=== PATIENT | female | born 1955 | race African-American/Black ===

== ENCOUNTER 2020-01-22 07:02 | Outpatient (REF) | payer OTHER, MEDICAID, SELFPAY ==
[2020-01-22 07:53] LABS: Hematocrit 25.4 % (37-47); Hemoglobin 8.3 g/dl (12.0-16.0); Mean Corpuscular HGB Conc 32.7 g/dl (31.0-35.0); Mean Corpuscular Hemoglobin 31.4 pg (27.0-33.0); Mean Corpuscular Volume 96.2 fL (80-98); Mean Platelet Volume 10.4 fL (9.4-12.3); NRBC Pct Auto 0.2 /100WBC (0.0-0.2); Platelet Count 406 X10*3/uL (160-400); Red Blood Count 2.64 X10*6/uL (4.20-5.50); Red Cell Distribution Width 13.4 % (11.0-16.0); White Blood Count 11.4 X10*3/uL (4.8-10.8)
[2020-01-22 07:56] LABS: INTERNATIONAL NORM RATIO 1.3 (0.9-1.1); Prothrombin Time 14.9 SEC (10.8-13.0)
[2020-01-22 09:03] LABS: Alanine Aminotransferase 13 U/L (0-31); Alkaline Phosphatase 108 U/L (39-117); Anion Gap 16 (12-20); Aspartate Amino Transferase 21 U/L (5-31); Bilirubin Total 0.4 mg/dL (0.0-1.0); Blood Urea Nitrogen 29 mg/dL (9-16); Calcium 7.6 mg/dL (8.4-10.2); Carbon Dioxide 27 mmol/L (22-29); Chloride 96 mmol/L (96-108); Estimated Glomerular Filt Rate 8; Glucose Random 89 mg/dL (60-115); Potassium 4.1 mmol/l (3.3-5.1); Sodium 135 mmol/L (135-145); Total Protein 7.6 g/dL (6.5-8.0)
== END 2020-01-22 07:03 | disposition home or self-care (01) ==
LOC: HO.MMNH1L 07:02
PROVIDERS: Visit Provider Family Medicine
DX: E11.22 Type 2 diabetes mellitus with diabetic chronic kidney disease (principal); N18.6 End stage renal disease
CPT/HCPCS: 36415; 80053; 85027; 85610

== ENCOUNTER 2020-01-27 13:00 | Outpatient (REF) | payer MEDICARE, MEDICAID, SELFPAY | END 2020-01-27 13:01 | LOC: HO.LNP 13:00 | PROVIDERS: Visit Provider Family Medicine | DX: Z20.828 Contact with and (suspected) exposure to other viral communicable diseases (principal) | CPT/HCPCS: U0003 ==

== ENCOUNTER 2020-02-01 14:53 | Outpatient (REF) | payer MEDICARE, MEDICAID, SELFPAY | END 2020-02-01 14:54 | disposition home or self-care (01) | LOC: HO.HSH1N 14:53 | PROVIDERS: Visit Provider Family Medicine | DX: Z13.89 Encounter for screening for other disorder (principal) ==

== ENCOUNTER 2020-02-01 15:27 | Outpatient (REF) | payer SELFPAY ==
[2020-02-01 15:42] LABS: INTERNATIONAL NORM RATIO 1.4 (0.9-1.1); Prothrombin Time 16.5 SEC (10.8-13.0)
== END 2020-02-01 15:28 | disposition home or self-care (01) ==
LOC: HO.MMNH1L 15:27
PROVIDERS: Visit Provider Family Medicine
DX: Z99.2 Dependence on renal dialysis (principal)
CPT/HCPCS: 36415; 85610

== ENCOUNTER 2020-02-17 | Outpatient (REF) | payer MEDICARE, MEDICAID, SELFPAY ==
[2020-02-17 07:00] LABS: Hematocrit 27.3 % (37-47); Hemoglobin 8.9 g/dl (12.0-16.0); Mean Corpuscular HGB Conc 32.6 g/dl (31.0-35.0); Mean Corpuscular Hemoglobin 31.1 pg (27.0-33.0); Mean Corpuscular Volume 95.5 fL (80-98); Platelet Count 172 X10*3/uL (160-400); Red Blood Count 2.86 X10*6/uL (4.20-5.50); Red Cell Distribution Width 13.6 % (11.0-16.0); White Blood Count 3.9 X10*3/uL (4.8-10.8)
[2020-02-17 07:17] LABS: INTERNATIONAL NORM RATIO 1.5 (0.9-1.1)
[2020-02-17 07:44] LABS: Calcium 7.3 mg/dL (8.4-10.2)
[2020-02-17 07:54] LABS: Anion Gap 14 (12-20); Blood Urea Nitrogen 12 mg/dL (9-16); Carbon Dioxide 32 mmol/L (22-29); Chloride 93 mmol/L (96-108); Estimated Glomerular Filt Rate 10; Glucose Random 85 mg/dL (60-115); Potassium 3.6 mmol/l (3.3-5.1); Sodium 135 mmol/L (135-145)
== END 2020-02-17 00:01 | disposition home or self-care (01) ==
LOC: HO.MMNH1L
PROVIDERS: Visit Provider Family Medicine
DX: I48.91 Unspecified atrial fibrillation (principal); E11.22 Type 2 diabetes mellitus with diabetic chronic kidney disease; N18.6 End stage renal disease
CPT/HCPCS: 36415; 80048; 85027; 85610